=== PATIENT | male | born 1975 | race Caucasian/White ===

== ENCOUNTER 2020-12-11 18:15 | Inpatient (IN) | payer OTHER ==
[~2020-12-11] VITALS: Ht 182.9 cm; Wt 99.8 kg
[~2020-12-11 18:15] MED LIST: ACCUNEB SO1.25 MG/1; ACETAMINOPHEN325 M1 PO; ADVIL100 M2 PO; ALLERGY SINUS-1 EACH; CLARITIN10 MG PO; NEXIUM40 MG; NEXIUM40 MG PO; NORCO 5-325 TA1 EACH PO; PREDNISONE 20 M20 MG PO; PREDNISONE50 MG PO; PRILOSEC 10MG C10 M1 PO; PROMETHAZINE-C120 ML PO; PROTONIX40 M2 PO; ROBITUSSIN DM118 ML; TRAMADOL 50 MG50 MG; TUSSIONEX PENN473 ML PO; ULTRAM50 MG PO; VENTOLIN HFA 1818 GM INH; ZPAK PO
[2020-12-11 18:19] VITALS: BP 146/106
[2020-12-11] MEDS ORDERED: CIALIS5 MG PO (18:27)
[2020-12-11 18:42] LABS: ABSOLUTE NEUTROPHILS 9.6 thou/uL (1.4-8.2); BASOPHILS 0.8 % (0.0-2.0); EOSINOPHILS 0.8 % (0.0-3.0); HEMATOCRIT 48.5 % (42.0-52.0); HEMOGLOBIN 16.4 gm/dL (14.0-18.0); LYMPHOCYTES 14.4 % (24.0-44.0); MCH 28.9 pg (26.0-34.0); MCHC 33.9 g/dL (28.0-37.0); MCV 85.3 fL (80.0-100.0); MONOCYTES 4.9 % (1.0-8.0); PLATELET COUNT 271 thou/uL (150-400); POLYS 79.1 % (36.0-66.0); RBC 5.68 mil/uL (4.50-6.00); RDW 13.2 % (10.5-14.5); WBC 12.2 thou/uL (4.0-11.0)
[2020-12-11 18:50] LABS: CALCIUM 9.9 mg/dL (8.5-10.1); POTASSIUM 4.1 mmol/L (3.5-5.1)
[2020-12-11 18:57] LABS: ALBUMIN 4.3 g/dL (3.4-5.0); DIRECT BILIRUBIN 0.1 mg/dL (<0.1-0.2); TOTAL BILIRUBIN 0.7 mg/dL (0.2-1.0); TOTAL PROTEIN 8.4 g/dL (6.4-8.2)
[2020-12-11 21:01] VITALS: BP 143/99
[2020-12-11 21:10] VITALS: BP 143/99
[2020-12-11 21:43] VITALS: BP 160/108
--- NOTE | 2020-12-12 00:30 | NUR ---
PT ARRIVED FROM THE ER. A&OX4. DENIES PAIN AND N/V ON ASESSESSMENT. WAS GIVEN MEDICATION IN ER PRIOR TO ARRIVAL. PT UP AD SHERLY TO BATHROOM. STEADY GAIT. NPO IV INTACT AND FLUIDS STARTED. PT STATED HAD A BM UPON ARIVAL X1. CALL LIGHT AT REACH. LUNGS CLEAR AND NO SKIN ISSUES. WILL CONT TO MONITOR TILL EOS.
[2020-12-12 04:25] VITALS: BP 145/96
[2020-12-12 06:01] LABS: HEMATOCRIT 42.8 % (42.0-52.0); HEMOGLOBIN 14.5 gm/dL (14.0-18.0); MCH 29.2 pg (26.0-34.0); MCV 85.9 fL (80.0-100.0); RBC 4.98 mil/uL (4.50-6.00); RDW 13.2 % (10.5-14.5); WBC 9.2 thou/uL (4.0-11.0)
[2020-12-12 06:33] LABS: CALCIUM 8.1 mg/dL (8.5-10.1); CREATININE 0.9 mg/dL (0.7-1.3); MAGNESIUM 2.2 mg/dL (1.8-2.4); POTASSIUM 3.7 mmol/L (3.5-5.1)
--- NOTE | 2020-12-12 08:31 | NUR ---
ASSESSMENT: CM REVIEWED CHART AND SPOKE WITH PATIENT. PT IS ALERT AND ORIENTED X4. PT WAS ADMITTED DUE TO ABDOMINAL PAIN AND DIARRHEA. PT HAS POSSIBLE SBO AND IS ON IV FLUIDS AND PAIN CONTROL. GENERAL SURGERY CONSULT WAS PLACED. PT REPORTS THAT HE LIVES IN A HOUSE WITH HIS AND CHILDREN. PT REPORTS ABOUT 3 STEPS TO ENTER THE HOME AND NO STEPS ONCE INSIDE. PT REPORTS BEING FULLY INDEPENDENT WITH ADLS AND AMBULATION. PT REPORTS NO HX OF HH OR SNF. PT REPORTS HAVING A PCP. CM DISCUSSED ROLE. PT DOES NOT ANTICIPATE HAVING ANY NEEDS FROM CM PRIOR TO DISCHARGE. CM WILL CONTINUE TO FOLLOW TO ASSIST NEEDED.
[2020-12-12 15:13] LABS: URINE BILIRUBIN NEGATIVE (Negative); URINE BLOOD NEGATIVE (Negative); URINE CLARITY CLEAR; URINE COLOR YELLOW; URINE GLUCOSE-RANDOM* NEGATIVE (Negative); URINE KETONES NEGATIVE (Negative); URINE LEUKOCYTES-REFLEX NEGATIVE (Negative); URINE NITRITE-REFLEX NEGATIVE (Negative); URINE PROTEIN (DIPSTICK) NEGATIVE (Negative); URINE SPECIFIC GRAVITY 1.015 (1.005-1.035); URINE UROBILINOGEN 0.2 E.U./dl (0.2-1.0)
--- NOTE | 2020-12-12 15:42 | NUR ---
ASSUMED PT CARE THIS AM. PT IS ALERT & ORIENTED X4. PT HAS IV SITE ON L AC. PT IS UP AD SHERLY. SENT UA THIS AFTERNOON. NO C/O OF PAIN, NAUSEA AND VOMITING DURING THE SHIFT. PT SIGNIFICANT OTHER WAS AT THE BEDSIDE. PT IS ON ROOM AIR. PT TOLERATED CLEAR LIQUID DIET THIS AM. PT ON THE BED, BED ON THE LOWEST POSITION, SIDE RAILS UP, CALL LIGHT WITHIN REACH. WILL CONTINUE TO MONITOR PT. FOLLOW POC.
[2020-12-12 16:51] VITALS: BP 136/96
[2020-12-12 20:40] VITALS: BP 141/97
--- NOTE | 2020-12-13 03:13 | NUR ---
ASSUMED CARE OF PT AT 1900. PT IS A/O X4 AND IS UP AD SHERLY. DENIES C/O PAIN, N/V, OR DIARRHEA THIS SHIFT. C/O HEARTBURN. HS PEPSID GIVEN DIRECTED. FALL PRECAUTIONS IN PLACE, CALL LIGHT IS WITHIN REACH. PT CALLS OUT APPROPRIATELY
[2020-12-13 05:50] VITALS: BP 133/88
[2020-12-13 07:47] VITALS: BP 143/87
[2020-12-13] MEDS ORDERED: FLAGYL500 M1 PO (10:26)
[2020-12-13] MEDS ORDERED: LEVOFLOXACIN500 MG PO (10:26)
[2020-12-13 10:32] VITALS: BP 143/87
--- NOTE | 2020-12-13 10:51 | NUR ---
ASSUMED CARE OF PT AT 0700 THIS MORNING. PT WAS ADMITTED FOR N/V/D WITH ABD CRAMPING. PT HAD NO COMPLAINTS THIS MORNING. SKIN INTACT W/D/ATR, NO TENTING. LUNGS ARE CLEAR IN ALL MCCRACKEN. ABD SOFT NONTENDER WITH ACTIVE BOWEL SOUNDS. PT IS A/OX4 EYES PERRLA, DISTAL PULSES PRESEMT AND STRONG. IV IN LEFT AC. CALL LIGHT AND OTHER NEEDS ARE PLACED WITHIN REACH. PT AMBULATES INDEPENT W/O ASST. ASSESSMENTS OTHERWISE UNREMARKABLE. PT WAS SEEN BE DR. DAVIS AND HAS BEEN DX WITH E-COLI. PT IA BEING DISCHARGED AND CAN RETURN HOME WITH INSTRUCTIONS FOR FLUID REPLACEMENT AND BLAND DIET UNTIL RELIEF. PT SIGNED DISCAHRGE PAPERWORK.
--- NOTE | 2020-12-13 14:24 | NUR ---
ON-GOING ASSESSMENT: PT HAS ORDERS TO DISCHARGE HOME TODAY NO NEEDS.
== END 2020-12-13 12:34 | disposition home or self-care (01) | DRG 392 ==
LOC: ER 18:15 → EROBS 20:29 → 4S 20:29
PROVIDERS: Nurse Practitioner; Nurse Practitioner Family; ADMIT Hospitalist; ATTEND Hospitalist
DX: A09 Infectious gastroenteritis and colitis, unspecified (principal); K56.699 Other intestinal obstruction unspecified as to partial versus complete obstruction; K21.9 Gastro-esophageal reflux disease without esophagitis; E78.5 Hyperlipidemia, unspecified; I10 Essential (primary) hypertension; Z87.11 Personal history of peptic ulcer disease
CPT/HCPCS: 10195